=== PATIENT | female | born 1980 | race African-American/Black ===

== ENCOUNTER 2016-09-16 05:40 | Inpatient (IN) | payer MEDICAID ==
[~2016-09-16] VITALS: Ht 165.1 cm; Wt 70.3 kg
--- NOTE | ~2016-09-16 | FD ---
ADMIT: 09/16/2016 RM/LOC: 227 [facility] MR#: [id number] [address] BRITTNEE GIORDANO I [address] [address] Final Diagnosis SEX: F AGE: 35 : 1980 ADMISSION DATE: 09/16/2016 DISCHARGE DATE: 09/17/2016 FINAL DIAGNOSIS: Intrauterine at term. PROCEDURE: Spontaneous vaginal delivery. Komal Engel MD/ tanya JOB #: [id number] CC: Komal Engel MD, Attending Physician Komal Engel MD, Family Physician
[~2016-09-16 05:40] MED LIST: MOTRIN-DPS800 MG PO; NIPPLECREAM TP; PRENATAL VIT1 TAB PO; TYLENOL #3 DPS1 TAB PO
--- NOTE | 2016-10-21 09:07 | HP ---
ADMIT: 09/16/2016 RM/LOC: 227 [facility] MR#: [id number] [address] BRITTNEE GIORDANO I [address] [place] [address] History and Physical SEX: F AGE: 35 : 1980 DATE OF SERVICE: REASON FOR ADMISSION: Induction of labor. HISTORY OF PRESENT ILLNESS: The patient is a 35-year-old, 3, para 2-0- 0-2, who presented to Labor and Delivery at 41 and 2/7th weeks' gestation for scheduled induction of labor at term. The patient's has been uncomplicated. At the time of admission, the patient denied any vaginal bleeding or loss of fluid and had irregular contractions. LABORATORY DATA: Blood type O positive, antibody screen negative, HIV negative, gonorrhea and chlamydia negative, hepatitis B surface antigen negative. Normal 1-hour glucose tolerance test and group B Strep negative. PAST MEDICAL HISTORY: Noncontributory. PAST SURGICAL HISTORY: None. CURRENT MEDICATIONS: vitamins daily. ALLERGIES: NO KNOWN MEDICAL ALLERGIES. SOCIAL HISTORY: The patient is . She denies any alcohol, tobacco, or drug use. FAMILY HISTORY: Noncontributory. PHYSICAL EXAMINATION: VITAL SIGNS: On admission, vital signs are stable. The patient is afebrile. GENERAL: The patient is alert and oriented, in no acute distress. HEART: Regular rate and without murmurs, gallops, or rubs. ADMIT: 09/16/2016 RM/LOC: 227 [facility] MR#: [id number] [address] BRITTNEE GIORDANO I [address] [place] [address] History and Physical SEX: F AGE: 35 : 1980 LUNGS: Clear to auscultation bilaterally. ABDOMEN: Soft, nontender, gravid. EXTREMITIES: No edema. No calf tenderness. heart tones are in the 130s with moderate variability and accelerations present. Contractions are irregular. Cervix 4 cm dilated, 60% effaced and 0 station. ASSESSMENT AND PLAN: 1. A 35-year-old, 3, para 2-0-0-2 at 41 and 2/7th weeks' gestation. 2. Scheduled induction of labor at term. Plan to be on Pitocin, induction of labor, and anticipate spontaneous vaginal delivery. Komal Engel MD/ azam JOB #: [id number] CC: Komal Engel, Attending Physician Komal Engel, Family Physician
--- NOTE | 2016-10-21 09:11 | OR ---
ADMIT: 09/16/2016 RM/LOC: 227 [facility] MR#: [id number] [address] TARSHA GIORDANOD I [address] [place] [address] Operative/Delivery Room Report SEX: F AGE: 35 : 1980 SURGERY DATE: 09/16/2016 SURGEON: Komal Engel MD NAME OF PROCEDURE: Spontaneous vaginal delivery. PREOPERATIVE DIAGNOSIS: Intrauterine at 41 and 2/7th weeks' gestation. POSTOPERATIVE DIAGNOSIS: Intrauterine at 41 and 2/7th weeks' gestation. FINDINGS: Live-born female , scores 8 at 1 minute, 8 at 5 minutes, weight 7 pounds, 6 ounces. ESTIMATED BLOOD LOSS: 150 mL. ANESTHESIA: Local infiltration with 1% lidocaine. COMPLICATIONS: None. INDICATIONS FOR PROCEDURE: The patient is a 35-year-old, 3, para 2-0- 0-2, who presented to Labor and Delivery at 41 and 2/7th weeks' gestation for scheduled induction of labor at term due to post-dates . The patient's had been otherwise uncomplicated. The patient had Pitocin induction of labor and had artificial rupture of membranes performed. The patient then progressed through labor to completely dilated and pushed, bringing the infant's vertex to the perineum. DESCRIPTION OF PROCEDURE: The patient was noted to be complete and pushing ADMIT: 09/16/2016 RM/LOC: 227 [facility] MR#: [id number] [address] LESLIE GIORDANOAAD I [address] [address] Operative/Delivery Room Report SEX: F AGE: 35 : 1980 with the infant's vertex at the perineum. The patient pushed and the 's vertex delivered in the CONRADO position over midline. She continued to push, anterior shoulder delivered, the posterior shoulder followed, and remainder of the infant delivered without difficulty as well. The infant was dried and handed off to mother's abdomen where nursing personnel were in attendance. The cord was clamped and cut. Twenty units of Pitocin placed in the IV bag to firm the uterus. The cervix was examined and was noted to be free of lacerations. The perineum was examined and was noted to have a second-degree midline laceration, which was repaired with 2-0 Vicryl in the usual fashion after local infiltration of 1% lidocaine. The patient tolerated the procedure well. All sponge and needle counts were correct. The patient and recovered in the room in stable condition. Komal Engel MD/ azam JOB #: [id number] CC: Komal Engel, Attending Physician Komal Engel, Family Physician
== END 2016-09-17 15:58 | disposition home or self-care (01) | DRG 775 ==
LOC: 2LDRP 05:40 → BC 05:40 → 2LDRP 05:59
PROVIDERS: ADMIT Obstetrics & Gynecology
PROC: 10E0XZZ Delivery of Products of Conception, External Approach (ICD-10-PCS; principal; 2016-09-16)
PROC: 3E033VJ Introduction of Other Hormone into Peripheral Vein, Percutaneous Approach (ICD-10-PCS; principal; 2016-09-16)
PROC: 10907ZC Drainage of Amniotic Fluid, Therapeutic from Products of Conception, Via Natural or Artificial Opening (ICD-10-PCS; principal; 2016-09-16)
PROC: 0KQM0ZZ Repair Perineum Muscle, Open Approach (ICD-10-PCS; principal; 2016-09-16)
DX: O48.0 Post-term pregnancy (principal); O70.1 Second degree perineal laceration during delivery; Z3A.41 41 weeks gestation of pregnancy; Z37.0 Single live birth